=== PATIENT | female | born 1955 | race American Indian/Alaskan Native ===

== ENCOUNTER 2018-06-04 09:00 | Day surgery (SDC) | payer BC ==
[2018-06-04] MEDS ORDERED: Dextrose 5%-Lactated Ringers 1,000 ML IV SCH (09:15)
[2018-06-04] MEDS ORDERED: Lactated Ringers 1,000 ML IV ONE (09:45)
[2018-06-04] MEDS ORDERED: Glycopyrrolate 0.2 MG/ML 2 ML SDV IVPUSH ONE (10:00)
[2018-06-04] MEDS ORDERED: Cyanocobalamin (Vitamin B12) 1,000 MCG/ML SDV IM ONE (10:00)
[2018-06-04] MEDS ORDERED: fentaNYL 100 MCG/2 ML SDV ONE (10:54)
[2018-06-04] MEDS ORDERED: Propofol 200 MG/20 ML SDV ONE (10:54)
[2018-06-04] MEDS ORDERED: Midazolam 1 MG/ML 2 ML SDV ONE (10:55)
[2018-06-04] MEDS ORDERED: MVI, Adult with Vitamin K 10 ML, Thiamine 200 MG, Chromium/Copper/Mang/Selen/Zn 1 ML in... IV ONE ×4 (11:00)
--- NOTE | 2018-06-11 14:11 | OR ---
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 OPERATIVE PROCEDURE: Upper GI endoscopy with dilation of esophagojejunostomy ([id number]). ANESTHESIA: IV sedation. INDICATIONS FOR PROCEDURE: The patient is status post esophagogastrectomy with Julien-en-Y esophagojejunostomy. She presents now with symptoms suggestive of stricturing at her anastomosis. The plan is to proceed with an upper GI endoscopy with dilation as indicated. Potential risks including bleeding and perforation were discussed, and the patient wishes to proceed. DETAILS OF PROCEDURE: The patient was taken to the operating room and placed in a left lateral decubitus position. IV sedation was administered, after which the upper GI endoscope was passed orally through the length of the esophagus and down to the level of esophagojejunostomy. This was noted to have a quite tight stricture measuring perhaps 3 to 4 mm in diameter. No retained food or fluid was noted. The Bard gastrointestinal balloon catheter was centered across the anastomosis and inflated to 30-[place] size. This was held in position for 1 minute, after which the balloon catheter was deflated and withdrawn. The scope was easily then passed through the anastomosis with no complications being noted and then the procedure concluded. The patient was taken to the recovery room in a satisfactory condition. Owen Aaron MD /[id number]
== END 2018-06-04 13:09 | disposition home or self-care (01) ==
LOC: JP.SDS 09:00
PROVIDERS: ATTEND Surgery
DX: K91.89 Other postprocedural complications and disorders of digestive system (principal); J45.909 Unspecified asthma, uncomplicated; F41.9 Anxiety disorder, unspecified; Z98.84 Bariatric surgery status; Z88.5 Allergy status to narcotic agent
CPT/HCPCS: 43233; J2250; J2704; J3010; J3420; J3490; J7120